=== PATIENT | male | born 1965 | race Caucasian/White ===

== ENCOUNTER 2020-02-22 17:22 | Emergency (ER) | payer BC ==
--- NOTE | 2020-02-22 18:02 | ERPHSYRPT ---
- History of Present Illness Time Seen by Provider: 02/22/20 17:45 Source: patient Exam Limitations: no limitations Patient Subjective Stated Complaint: pt here for laceration to right thumb while using a mandiline Triage Nursing Assessment: pt alert, waked in , mask in place, has avulsion to right thumb Physician History: Patient cut his right thumb on his pad on a mandoline prior to coming into the emergency department. Patient is up to date on his tetanus Timing/Duration: hour(s) Quality: painful Severity: mild Location: other (right thumb) Possible Causes: other (sharp metal edge of a mandoline) Modifying Factors: Worsens With: other (movement worsens) Associated Symptoms: other (bleeding) Allergies/Adverse Reactions: No Known Drug Allergies Allergy (Unverified 02/22/20 17:36) Home Medications: Amlodipine Besylate 1 ea DAILY 02/22/20 [History] Losartan Potassium 1 ea DAILY 02/22/20 [History] allopurinoL [Allopurinol] 1 ea DAILY 02/22/20 [History] gemfibroziL [Gemfibrozil] 1 ea BID 02/22/20 [History] Hx Tetanus, Diphtheria Vaccination/Date Given: Yes Hx Influenza Vaccination/Date Given: No Hx Pneumococcal Vaccination/Date Given: No Travel Risk - International Travel Have you traveled outside of the country in past 3 weeks: No - Coronavirus Screening Are you exhibiting any of the following symptoms?: No Close contact with a COVID-19 positive Pt in past 14-21 Days: No - Review of Systems Constitutional: No Fever, No Chills Eyes: No Eye Pain, No Vision Changes Ears, Nose, & Throat: No Symptoms Respiratory: No Cough, No Dyspnea Cardiac: No Chest Pain, No Palpitations, No Syncope Abdominal/Gastrointestinal: No Abdominal Pain, No Nausea, No Vomiting Musculoskeletal: No Back Pain, No Neck Pain Skin: No Rash Neurological: No Dizziness, No Focal Weakness, No Parasthesia, No Sensory Changes Psychological: No Symptoms Endocrine: No Symptoms All Other Systems: Reviewed and Negative - Past Medical History Pertinent Past Medical History: Yes Cardiac History: Hypertension - Past Surgical History Past Surgical History: No - Social History Smoking Status: Never smoker Exposure to second hand smoke: No Drug Use: none Patient Lives Alone: No - Nursing Vital Signs Nursing Vital Signs: Initial Vital Signs Temperature 97.7 F 02/22/20 17:29 Pulse Rate 92 H 11/19/20 17:29 Respiratory Rate 16 02/22/20 17:29 Blood Pressure 152/105 02/22/20 17:29 O2 Sat by Pulse Oximetry 95 02/22/20 17:29 Pain Scale Pain Intensity 6 - Physical Exam General Appearance: no apparent distress, alert Eye Exam: PERRL/EOMI, eyes nml inspection, No scleral icterus Neck Exam: normal inspection, supple Respiratory Exam: airway intact, No respiratory distress, No accessory muscle use Cardiovascular Exam: normal peripheral pulses, capillary refill <2 sec Extremity Exam: normal inspection, normal range of motion, lacerations (partial avulsion of the ulnar side of the distal volar pad of the right thumb with no involvment of the nail or nailbed, positive active bleeding) Neurologic Exam: alert, oriented x 3, cooperative, deportation officer II-XII nml as tested, normal mood/affect, nml cerebellar function Skin Exam: normal color, warm, laceration (avulsion of the distal volar pad, no involvement of nail or nailbed and no involvement of underlying osseous or tendon structures), No mottled, No pale SpO2 Interpretation: normal SpO2: 95 O2 Delivery: Room Air - Course Nursing assessment & vital signs reviewed: Yes - Radiology Exams Right Hand X-ray Interpretation: Other (patient declined at this time. He understand the benefits to ensure no underlying osseous involvement, but patient decline) - Progress Progress: improved Progress Note: 02/22/20 18:03 patient had surgicel with gauze over top with coban to form a pressure dressing to stop the bleeding since there is no gelfoam in the emergency department or hospital 02/22/20 18:35 Patient has no further bleeding from the right thumb after dressing applied and patient feels no numbness to his thumb 02/22/20 18:52 Patient came in after having a an avulsion to the volar pad of his right thumb. Bleeding was stopped using combination of Surgicel, gauze and Coban wrap. Patient's tetanus was up-to-date per his history. Patient did not require any antibiotics. Patient declined a x-ray of his hand and I do not feel that involved any fracture of the distal phalanx by his clinical exam. Patient will follow up in 2 days if he is in the area to recheck the wound and a prescription was sent for gauze and dressing as patient is a change twice a day over top of the Surgicel and check the wound. I reviewed them in detail what signs and symptoms to return immediately back to the emergency department including uncontrolled bleeding, numbness of the finger, any signs of redness, increasing pain, warmth or any subjective fever chills for immediate reevaluation in the emergency department Counseled pt/family regarding: diagnosis, need for follow-up - Departure Departure Disposition: Home Clinical Impression: Avulsion of skin of finger Qualifiers: Encounter type: initial encounter Qualified Code(s): S61.209A - Unspecified open wound of unspecified finger without damage to nail, initial encounter Hypertension Qualifiers: Hypertension type: essential hypertension Qualified Code(s): I10 - Essential (primary) hypertension Condition: Good Critical Care Time: No Instructions: Wound Care (DC) Additional Instructions: Keep the dressing on until the morning of 02/23/2020 and replace gauze and tape. Return to the emergency department in 2 days to check the wound. Return immediately back to the emergency department if you have any bleeding through the gauze, numbness of the finger, feel feverish, have any chills, or have any other new symptoms to the other fingers or hand for immediate reevaluation in the emergency department Prescriptions: Gauze Bandage/Elastic Bandage [Unna-Flex Convenience Pack] 1 each TP BID #14 com leo..pkg
[2020-02-22 18:31] VITALS: BP 148/98
[2020-02-22 19:03] VITALS: PULSE 76; O2SAT 98
== END 2020-02-22 19:02 | disposition home or self-care (01) ==
LOC: ED 17:22
DX: S61.011A Laceration without foreign body of right thumb without damage to nail, initial encounter (principal); W26.8XXA Contact with other sharp object(s), not elsewhere classified, initial encounter; I10 Essential (primary) hypertension
CPT/HCPCS: 99283